=== PATIENT | male | born 1955 | race Caucasian/White ===

== ENCOUNTER 2020-06-05 06:00 | Day surgery (SDC) | payer MEDICARE ==
[~2020-06-05] VITALS: Ht 177.8 cm; Wt 92.0 kg
[2020-06-05] MEDS ORDERED: BUPIVACAINE/EPI 0.5% 1:200K ONE (06:40)
[2020-06-05 06:41] VITALS: BP 103/68
[2020-06-05] MEDS ORDERED: NONE PER PT (06:43)
[2020-06-05] MEDS ORDERED: CHLORHEXIDINE 15 ML UDC MM STA (06:52)
[2020-06-05] MEDS ORDERED: LACTATED RINGERS 1,000 ML IV SCH (06:52)
[2020-06-05] MEDS ORDERED: LIDOCAINE-MPF 2% ,5ML ONE (07:13)
[2020-06-05] MEDS ORDERED: DEXAMETHASONE 4 MG/ML, 1ML ONE (07:13)
[2020-06-05] MEDS ORDERED: ROCURONIUM 10MG/ML,5ML ONE (07:13)
[2020-06-05] MEDS ORDERED: GLYCOPYRROLATE 0.2MG/1ML, 5ML ONE (07:13)
[2020-06-05] MEDS ORDERED: MIDAZOLAM 1 MG/ML, 2ML ONE (07:13)
[2020-06-05] MEDS ORDERED: FENTANYL PF 250 MCG/5ML ONE (07:13)
[2020-06-05] MEDS ORDERED: PROPOFOL 10 MG/ML, 20ML ONE (07:14)
[2020-06-05] MEDS ORDERED: DIPHENHYDRAMINE 50 MG/ML, 1ML IVPush PRN (07:30)
[2020-06-05] MEDS ORDERED: KETOROLAC 30 MG/1 ML IVPush PRN (07:30)
[2020-06-05] MEDS ORDERED: HYDROmorphone 1 MG/ML, 1ML INJ IVPush PRN (07:30)
[2020-06-05] MEDS ORDERED: HALOPERIDOL 5 MG/ML IV PRN (07:30)
[2020-06-05] MEDS ORDERED: DIAZEPAM 5 MG/ML, 2ML IVPush PRN (07:30)
[2020-06-05] MEDS ORDERED: METOCLOPRAMIDE 5 MG/ML, 2ML IVPush PRN (07:30)
[2020-06-05] MEDS ORDERED: LORazepam 2 MG/ML, 1ML IVPush PRN (07:30)
[2020-06-05] MEDS ORDERED: ALBUTEROL/IPRATROPIUM 2.5MG/0.5MG, 3 ML NPPB PRN (07:30)
[2020-06-05] MEDS ORDERED: HYDROcodone/APAP 7.5-325MG/15ML UDC PO PRN (07:30)
[2020-06-05] MEDS ORDERED: LABETALOL 5MG/ML, 20ML IV PRN (07:30)
[2020-06-05] MEDS ORDERED: EPHEDRINE 50 MG/ML, 1ML IM PRN (07:30)
[2020-06-05] MEDS ORDERED: ONDANSETRON 2MG/ML, 2ML IVPush PRN (07:30)
[2020-06-05] MEDS ORDERED: OXYcodone 5 MG/5 ML ORAL.SOL UDC PO PRN (07:30)
[2020-06-05] MEDS ORDERED: MEPERIDINE/PF 25MG/0.5ML IVPush PRN (07:30)
[2020-06-05] MEDS ORDERED: MIDAZOLAM 1 MG/ML, 2ML IV PRN (07:30)
[2020-06-05] MEDS ORDERED: EPHEDRINE 50 MG/ML, 1ML ONE (07:44)
[2020-06-05] MEDS ORDERED: MAGNESIUM SULFATE 1 GM/2 ML ONE (08:11)
[2020-06-05] MEDS ORDERED: LIDOCAINE 1%, 20ML ONE (08:11)
[2020-06-05] MEDS ORDERED: KETOROLAC 30 MG/1 ML ONE (08:18)
[2020-06-05] MEDS ORDERED: FENTANYL PF 100 MCG/2ML ONE (08:18)
[2020-06-05] MEDS ORDERED: OXYcodone 5 MG/5 ML ORAL.SOL UDC ONE (08:19)
[2020-06-05] MEDS: FENTANYL PF 100 MCG/2ML IV PRN ×2 (08:20→08:40)
== END 2020-06-05 09:50 | disposition home or self-care (01) ==
LOC: OUT 06:00
PROVIDERS: ATTEND Colon & Rectal Surgery
DX: K64.8 Other hemorrhoids (principal); Z11.59 Encounter for screening for other viral diseases; K62.0 Anal polyp; K62.89 Other specified diseases of anus and rectum; Z79.899 Other long term (current) drug therapy; Z87.891 Personal history of nicotine dependence; Z88.0 Allergy status to penicillin; Z88.2 Allergy status to sulfonamides; Z88.8 Allergy status to other drugs, medicaments and biological substances; Z98.890 Other specified postprocedural states; Z82.49 Family history of ischemic heart disease and other diseases of the circulatory system; Z83.3 Family history of diabetes mellitus
CPT/HCPCS: 36415; 46260; 46922; 87635; 88304; 88305; 93005; J1100; J1885; J2250; J2704; J3010; J3475; J7120